=== PATIENT | female | born 1990 | race Caucasian/White ===

== ENCOUNTER 2016-08-28 12:19 | Inpatient (IN) ==
[2016-08-28] MEDS ORDERED: LR 2,000 ML ONE (12:33)
[2016-08-28] MEDS ORDERED: PEPCID PO ONE (12:44)
[2016-08-28] MEDS ORDERED: KEFZOL 1 GM/D5W 1 GM/50 ML IVPB IV PRN (12:44)
[2016-08-28] MEDS ORDERED: LR 500 ML IV ONE (12:44)
[2016-08-28] MEDS ORDERED: REGLAN PO ONE (12:44)
[2016-08-28] MEDS ORDERED: BICITRA PO ONE ×2 (13:30→16:00)
[2016-08-28] MEDS ORDERED: REGLAN IV ONE ×2 (13:30→16:00)
[2016-08-28] MEDS ORDERED: PEPCID IV ONE ×2 (13:30→16:00)
[2016-08-28 14:48] LABS: AGAP 16; ALBUMIN 3.7 g/dL (3.5-5.0); ALKALINE PHOSPHATASE 137 U/L (32-104); BUN 5 mg/dL (8-22); CALCIUM 8.7 mg/dL (8.8-10.2); CHLORIDE 102 mmol/L (98-107); COSMO 268; GOT 13 U/L (10-30); GPT 8 U/L (10-36); POTASSIUM 3.5 mmol/L (3.5-5.1); SODIUM 136 mmol/L (136-145); TCO2 19 mmol/L (25-35); TOTAL PROTEIN 6.1 g/dL (6.3-8.3)
[2016-08-28 14:58] LABS: MANUAL DIFF NEEDED? NO
[2016-08-28 15:00] LABS: BASO% 0.2 % (0.0-0.8); EOS# 0.09 X1000 (0.0-0.7); EOS% 0.9 % (0.0-10.0); HEMATOCRIT 38.6 % (37.0-47.0); HEMOGLOBIN 13.5 g/dL (12.0-16.0); IMM GRAN# 0.06 X1000 (0.0-0.04); IMM GRAN% 0.6 % (0.0-0.5); LYMPH# 1.35 X1000 (1.2-3.4); LYMPH% 13.2 % (20.5-51.1); MCH 30.9 PG (27-31); MCV 88.3 FL (81-99); MONO# 0.85 X1000 (0.11-0.59); MONO% 8.3 % (1.7-9.3); MPV 10.9 FL (7.4-10.4); NEUT% 76.8 % (42.2-75.2); PLT 203 X1000 (130-400); RBC 4.37 XMIL (4.2-5.4)
[2016-08-28] MEDS: LR 1,000 ML IV SCH ×2 (16:16→21:17)
[2016-08-28] MEDS ORDERED: PITOCIN ONE ×2 (16:21→16:22)
[2016-08-28] MEDS ORDERED: PITOCIN 20 UNITS/LR 20 UNITS/1,000 ML IV.SOLN ONE (16:26)
[2016-08-28] MEDS ORDERED: LR 1,000 ML ONE (16:26)
[2016-08-28] MEDS ORDERED: FENTANYL ONE (16:29)
[2016-08-28] MEDS ORDERED: DURAMORPH ONE (16:29)
[2016-08-28] MEDS ORDERED: HEMABATE ONE (16:31)
[2016-08-28] MEDS ORDERED: METHERGINE ONE (16:31)
[2016-08-28] MEDS ORDERED: NEO-SYNEPHRINE ONE (17:33)
[2016-08-28] MEDS ORDERED: TORADOL ONE (17:45)
[2016-08-28] MEDS ORDERED: ZOFRAN IV PRN ×2 (18:32)
[2016-08-28] MEDS ORDERED: BENADRYL IV PRN (18:32)
[2016-08-28] MEDS ORDERED: NARCAN INJ PRN (18:32)
[2016-08-28] MEDS ORDERED: ZOFRAN ODT PO PRN (18:32)
[2016-08-28] MEDS ORDERED: DILAUDID IV PRN (18:33)
[2016-08-28] MEDS ORDERED: PITOCIN 20 UNITS/LR 20 UNITS/1,000 ML IV.SOLN IV ONE (18:38)
[2016-08-28] MEDS ORDERED: M-M-R II VACCINE SUBQ ONE (18:38)
[2016-08-28] MEDS ORDERED: BOOSTRIX VACCINE IM ONE (18:38)
[2016-08-28] MEDS ORDERED: PERCOCET-5 PO PRN (18:38)
[2016-08-28] MEDS ORDERED: DULCOLAX PR PRN (18:38)
[2016-08-28] MEDS ORDERED: PITOCIN IM PRN (18:38)
[2016-08-28] MEDS ORDERED: HYDROXYZINE PO PRN (18:38)
[2016-08-28] MEDS ORDERED: PHENERGAN IM PRN (18:38)
[2016-08-28] MEDS ORDERED: AMBIEN PO PRN (18:38)
[2016-08-28] MEDS ORDERED: CYTOTEC PO PRN (18:38)
[2016-08-28] MEDS ORDERED: PERCOCET-10 PO PRN (18:38)
[2016-08-28] MEDS ORDERED: MYLICON PO PRN (18:38)
[2016-08-28] MEDS ORDERED: HYDROXYZINE IM PRN (18:38)
--- NOTE | 2016-08-28 20:00 | HISTORY AND PHYSICAL ---
CHIEF COMPLAINT: Sent from clinic secondary to oligohydramnios and elevated blood pressure. HISTORY OF PRESENT ILLNESS: This is a 26-year-old, -0-0-2 with intrauterine at 39 weeks by LMP consistent with 9 week ultrasound, EDC 09/04/2016, who presents from clinic secondary to elevated blood pressures and oligohydramnios. care has been uncomplicated thus far. Of note, the patient was originally scheduled for primary low transverse section secondary to breech presentation. However, repeat scan today revealed in cephalic presentation. Estimated weight today was 9.5 pounds. Oligohydramnios was noted. OBSTETRICAL HISTORY: G1 through G2 full-term vaginal delivery. GLUER AND SLICER HAND HISTORY: Denies abnormal Paps or sexually transmitted infections. PAST MEDICAL HISTORY: Anxiety. PAST SURGICAL HISTORY: Denies. MEDICATIONS: vitamins. ALLERGIES: "pain medications" SOCIAL HISTORY: Denies alcohol, tobacco or illicit drug use. However, she was a former smoker. FAMILY HISTORY: Significant for diabetes in her father, hypertension in her father, heart disease in her father. REVIEW OF SYSTEMS: Patient denies headaches and vision changes. She notes recent shortness of breath in clinic, however, is resolved on presentation. PHYSICAL EXAMINATION: GENERAL: Well-developed, well-nourished, white female, in no acute distress. HEENT: Pupils equal, round, reactive to light. Extraocular muscles intact. CHEST: Clear to auscultation bilaterally. CARDIOVASCULAR: Regular rate and rhythm. No murmurs, rubs, or gallops. ABDOMEN: Soft, nontender, gravid. Estimated weight per transabdominal ultrasound 9.5 pounds. EXTREMITIES: No clubbing, cyanosis, or edema. SKIN: No focal lesions. NEUROLOGIC: No focal deficits. DTRs +2. LABS: White blood cell count 2.25, hemoglobin and hematocrit 13.5 and 38.6, platelets 203. Complete metabolic panel revealed normal LFTs. ASSESSMENT AND PLAN: 1. Intrauterine at 39 weeks. 2. Oligohydramnios. 3. Gestational hypertension. No signs or symptoms of . 4. Estimated weight around 9.5 pounds. Given elevated blood pressure with gestational age and oligohydramnios, we will proceed forward with delivery. The patient is requesting elective primary low transverse section given estimated weight of on ultrasound today. The patient was counseled that current recommendations in the absence of gestational diabetes are to proceed forward with induction of labor unless estimated weight was around or greater than 5000 g. Patient was counseled that a section was not necessarily recommended in this situation for the estimated weight alone and that a section increases the patient's risk of bleeding, infection, injury to bowel and bladder, as well as increased risk of placental abnormalities in subsequent pregnancies. The patient states that she understands these risks, however, she would still like to proceed forward with primary low transverse section. cc: Vinay Hair MD
[2016-08-28] MEDS: PERICOLACE PO SCH (22:31)
[2016-08-28] MEDS: MYLICON PO SCH (22:31)
[2016-08-28] MEDS: PITOCIN 10 UNITS/LR 10 UNIT/1,000 ML IV.SOLN IV SCH (23:00)
[2016-08-28] MEDS: TORADOL IV SCH (23:54)
--- NOTE | 2016-08-29 00:07 | OPERATIVE NOTE ---
PROCEDURE DATE: 08/28/2016 PREOPERATIVE DIAGNOSIS: Intrauterine at 39+0, gestational hypertension, suspected oligohydramnios, estimated weight 9.5 pounds. POSTOPERATIVE DIAGNOSIS: Intrauterine at 39+0, gestational hypertension, suspected oligohydramnios, estimated weight 9.5 pounds. PROCEDURE PERFORMED: Primary low transverse section. SURGEON: Dr. Hair. ANESTHESIA: Dr. Christian. FINDINGS: Normal uterus, ovaries, and bilateral fallopian tubes. COMPLICATIONS: None apparent. ESTIMATED BLOOD LOSS: 700 mL. SPECIMENS REMOVED: Placenta, cord blood. OPERATIVE COURSE: The patient was identified and consents were reviewed. Spinal anesthesia was administered without complications. The patient was placed on the operative table in the dorsal supine position with a leftward tilt. Abdomen was prepped and draped in a normal sterile fashion. A Pfannenstiel skin incision was made and carried through to the underlying layer of fascia. It was extended laterally with Morley scissors. The superior portion of the fascial incision was grasped with Rosalva clamps, elevated, and the underlying rectus muscles were dissected off with Morley scissors. Inferior portion was performed in a similar manner. The rectus muscles were then identified and in the midline. The peritoneum was identified and entered bluntly. A bladder blade was then inserted. A low transverse hysterotomy was made. Membranes ruptured. Anterior placenta was noted on entry. was in the cephalic presentation. delivered atraumatically, with moderate difficulty. Nuchal cord x1 noted at delivery, reduced post delivery. The cord was clamped and cut. The infant was handed off to awaiting nursing staff. The placenta was then manually extracted and the uterus was exteriorized and cleaned of all clots and debris. The hysterotomy was repaired with 0 chromic in 2 layers, first in a single running locked layer. The 2nd layer was repaired in an imbricating running fashion. Adequate hemostasis was noted at the hysterotomy site. The uterus was returned to the intraperitoneal space. Again, adequate hemostasis was noted throughout the hysterotomy. The peritoneum was then reapproximated using 0 chromic. The fascia was then closed with 0 Vicryl in a running fashion. Subcutaneous tissue was closed with plain gut suture. The skin was closed with both 4-0 Biosyn, as well as Dermabond. Patient tolerated the procedure well. She was taken to the recovery room afterwards in stable condition. cc: Vinay Hair MD
[2016-08-29] MEDS ORDERED: TORADOL IV PRN (01:45)
[2016-08-29 06:00] LABS: HEMATOCRIT 29.5 % (37.0-47.0); HEMOGLOBIN 10.2 g/dL (12.0-16.0); MCH 30.7 PG (27-31); MCHC 34.6 g/dL (33-37); MCV 88.9 FL (81-99); MPV 10.2 FL (7.4-10.4); RBC 3.32 XMIL (4.2-5.4)
[2016-08-29] MEDS: TORADOL IV SCH ×2 (06:30→12:51)
[2016-08-29] MEDS: MYLICON PO SCH ×4 (08:44→22:02)
--- NOTE | 2016-08-29 10:23 | PROGRESS NOTE ---
DATE: 08/29/2016 SUBJECTIVE: She is postop day 1 from a primary delivery elected for suspected macrosomia. Ms. Alonso communicates no complaints. She is tolerating her breakfast and anticipates moving around today. OBJECTIVE: Vital Signs: Her vital signs stable. She is afebrile. General: She is alert and cooperative, no distress. Neck: Supple. Lungs: Clear. Heart: Regular sinus rhythm. Abdomen: Distended. Incision is dry and intact. The uterus is firm. Extremities: There is +2 lower extremity edema. LABS: Hemoglobin 10.2. PLAN: Routine postop and care. cc: MD Vinay Slaughter MD
[2016-08-29] MEDS ORDERED: LR 1,000 ML IV SCH (18:38)
[2016-08-29] MEDS ORDERED: TYLENOL PO PRN (19:35)
[2016-08-29] MEDS: MOTRIN PO PRN (20:20)
[2016-08-29] MEDS: PERICOLACE PO SCH (20:20)
[2016-08-29] MEDS: PITOCIN 10 UNITS/LR 10 UNIT/1,000 ML IV.SOLN IV SCH (22:02)
[2016-08-30] MEDS: MOTRIN PO PRN (04:10)
[2016-08-30 08:07] VITALS: BP 133/66
[2016-08-30] MEDS: MYLICON PO SCH (09:16)
--- NOTE | 2016-08-30 17:22 | DISCHARGE SUMMARY ---
ADMISSION DATE: 08/28/2016 DISCHARGE DATE: 08/30/2016 ADMITTING DIAGNOSES: 1. Intrauterine at 39 weeks. 2. Gestational hypertension. 3. Oligohydramnios. 4. Estimated weight of 9 pounds 5 ounces. DISCHARGE DIAGNOSES: 1. Status post primary section. 2. Gestational hypertension. HISTORY OF PRESENT ILLNESS: The patient is a 26-year-old, G3, P2, with intrauterine at 39 weeks who presented to the clinic with elevated blood pressures and decreased amniotic fluid. Estimated weight showing 9 pounds 5 ounces. The decision made was to proceed with primary abdominal delivery. Please see full operative report for details. Postoperatively, patient was transferred to the floor for routine postop care. On postop day #1, Solano catheter was discontinued. Patient demonstrated the ability to void. Hematocrit returned 29.5, and on postop day #2 the patient was tolerating a regular diet, ambulating without difficulty, and was felt to be stable for discharge home. DISCHARGE DISPOSITION: The patient is discharged home. PRIMARY PROCEDURE: Primary section. DISCHARGE INSTRUCTIONS: The patient to follow up in 1 week for postop visit. cc: MD Vinay Riojas MD
== END 2016-08-30 11:25 | disposition home or self-care (01) ==
LOC: P.LD 12:19 → P.WC 23:23
PROVIDERS: ADMIT Obstetrics & Gynecology; ATTEND Obstetrics & Gynecology